=== PATIENT | male | born 1995 | race American Indian/Alaskan Native ===

== ENCOUNTER 2023-09-15 13:55 | Emergency (ER) | payer SELFPAY ==
[~2023-09-15] VITALS: Ht 180.3 cm; Wt 59.1 kg
[2023-09-15 14:01] VITALS: TEMP 97.9
[2023-09-15 14:31] LABS: HEMATOCRIT 44.6 % (42.0-52.0); HEMOGLOBIN 14.8 g/dl (13.5-18.0); MEAN CELL VOLUME 95 fl (80.0-100.0); MEAN CORPUSCULAR HEMOGLOBIN 32 pg (27-31); MEAN CORPUSCULAR HGB CONC 33 g/dl (33.0-37.0); MEAN PLATELET VOLUME 9.5 fl (7.4-10.4); PLATELET COUNT 668 K/mm3 (130-400); REDCELL DISTRIBUTION WIDTH-CV 11.8 % (11.5-14.5)
[2023-09-15 14:45] LABS: ALANINE AMINOTRANSFERASE 14 U/L (0-55); ALBUMIN 3.9 gm/dL (3.5-5.0); ALKALINE PHOSPHATASE 78 U/L (40-150); ANION GAP 15 mmol/L (7-16); AST,SGOT 18 U/L (5-34); BILIRUBIN,TOTAL 0.6 mg/dL (0.2-1.2); BLOOD UREA NITROGEN 9 mg/dL (9-21); C-REACTIVE PROTEIN 4.57 mg/dL (0.00-0.50); CARBON DIOXIDE 21 mmol/L (22-29); CHLORIDE 107 mmol/L (98-107); CREATINE KINASE 76 U/L (30-200); CREATININE, serum 0.79 mg/dL (0.72-1.25); GLUCOSE 105 mg/dL (70-99); POTASSIUM 3.4 mmol/L (3.5-4.5); SODIUM 143 mmol/L (136-145); TOTAL PROTEIN 8.3 gm/dL (6.2-8.1)
[2023-09-15 14:57] LABS: TROPONIN-I < 0.010 ng/mL (0.00-0.033)
[2023-09-15 15:16] LABS: BAND 1 % (0-10); LYMPHOCYTE 10 % (20.0-51.0); NEUTROPHILS 88 % (42.0-75.2); PLATELET ESTIMATE INCREASED (NORMAL)
[2023-09-15] MEDS ORDERED: FLEXERIL 1010 MG/TAB PO (15:21)
[2023-09-15] MEDS ORDERED: DOXYCYCLINE 10100 MG PO (15:21)
[2023-09-15 16:04] VITALS: BP 123/79; PULSE 87
== END 2023-09-15 16:04 | disposition home or self-care (01) ==
LOC: COL.ER 13:55
PROVIDERS: Emergency Medicine
DX: J18.9 Pneumonia, unspecified organism (principal); F41.9 Anxiety disorder, unspecified; E87.6 Hypokalemia; F17.200 Nicotine dependence, unspecified, uncomplicated
CPT/HCPCS: J2060; J7030

== ENCOUNTER 2024-03-30 20:24 | Emergency (ER) | payer SELFPAY ==
[~2024-03-30] VITALS: Ht 180.3 cm; Wt 59.1 kg
[~2024-03-30 20:24] MED LIST: DOXYCYCLINE 10100 MG PO; FLEXERIL 1010 MG/TAB PO; PROTONIX 40MG T40 MG PO; ZOFRAN ODT4 MG PO
[2024-03-30 20:33] VITALS: BP 122/77; PULSE 89; TEMP 98.4
== END 2024-03-30 21:28 | disposition home or self-care (01) ==
LOC: COL.ER 20:24
DX: S81.011A Laceration without foreign body, right knee, initial encounter (principal); F17.200 Nicotine dependence, unspecified, uncomplicated; W26.8XXA Contact with other sharp object(s), not elsewhere classified, initial encounter